=== PATIENT | female | born 1940 | race Caucasian/White ===

== ENCOUNTER 2022-06-30 13:46 | Outpatient (CLI) | payer MEDICARE, SELFPAY ==
--- NOTE | 2022-06-30 | CT_ITS ---
WS: [id number] CT CHEST TECHNIQUE: Contrast enhanced CT of the chest with coronal and sagittal reformatted images. CLINICAL INFORMATION: ABN FINDING IN LUNG COMPARISON: CT chest 2013 DLP: 358.[address] scans at [facility] use at least one of these dose optimization techniques: automated e xposure control; mA and/or kV adjustment per patient size (includes targeted exams where dose is matc hed to clinical indication); or iterative reconstruction. FINDINGS: Advanced chronic emphysematous changes. No acute pulmonary infiltrates. No focal pneumonia or pleural fluid. Spiculated lesion in the RIGHT upper lobe near the lung apex measuring 1.4 cm in maximum dime nsion. This is new since 2013 and is indeterminant. Neoplasm not excluded. This can be further evalua nguyen with PET/CT. Normal thyroid gland. Aortic calcification. Normal caliber thoracic aorta. Coronary calcification. No rmal GE junction. Adrenal glands are normal. Thoracic scoliosis and kyphosis. Hypertrophic changes th oracic spine. CT/CT chest w con* [id number] IMPRESSION: 1. Spiculated 1.4 cm lesion RIGHT upper lobe at the lung apex. This is indeter minant and could be further evaluated PET/CT. 2. No other suspicious pulmonary parenchymal abnormalities. 3. Advanced chronic emphysematous changes. 4. No mediastinal or hilar lymphadenopathy. 5. Thoracic scoliosis and kyphosis.
[2022-06-30] MEDS: iohexol 350 mg/mL 500 mL Btl (per mL) IV (14:43)
[2022-06-30 15:28] LABS: Blood Urea Nitrogen 12 mg/dL (8-23)
== END 2022-06-30 13:47 | disposition home or self-care (01) ==
LOC: RAD 13:53
PROVIDERS: Visit Provider Nurse Practitioner Family
DX: R91.8 Other nonspecific abnormal finding of lung field (principal); J98.4 Other disorders of lung; M41.84 Other forms of scoliosis, thoracic region
CPT/HCPCS: 71260; 82565; 84520; Q9967

== ENCOUNTER 2022-08-06 05:59 | Outpatient (CLI) | payer MEDICARE, SELFPAY ==
--- NOTE | 2022-08-06 | PETR_ITS ---
PROCEDURE INFORMATION: Exam: PET/CT Skull Base to Mid-thigh Exam date and time: 08/06/2022 9:30 AM Age: 82 years old Clinical indication: Abnormal findings; Spiculated 1.4 cm lesion right upper lobe at the lung apex. This is indeterminant and could be. Further evaluated pet/ct. ; Additional info: Lung mass noted on CT LABS AND CLINICAL REPORTS: Glucose: 106 mg/dl Treatment strategy for malignancy (PET staging): Initial Staging (PI) TECHNIQUE: Imaging protocol: Following at least four-hour fasting and following the injection of F-18-FDG, low dose CT images were obtained. Then, PET images were obtained. Attenuation corrected images were constructed using the CT scan. Fused images of PET and CT were reviewed. The standardized uptake values (SUV) reported below are maximum values within a region of interest, expressed in gm/ml. Exam includes orbital meatal line to mid-thigh. Radiopharmaceutical: 12.61 mCi F-18 FDG (Fluorodeoxyglucose), IV. Time of imaging post radiopharmaceutical administration: 1 hour Injection site: Right antecubital vein COMPARISON: CT chest 06/30/2022 and 05/24/2014 FINDINGS: Brain: Visualized brain has normal physiologic uptake. Pharynx: No abnormal uptake. Larynx: No abnormal uptake. Lungs, pleura and trachea: 2 x 0.6 cm spiculated opacity medially in the right upper lobe in the apex with spiculations extending toward the mediastinal pleura measures 2.1 SUV. No additional lung nodules or masses. Severe centrilobular emphysema in the upper lobes. No pleural effusion. Heart: Normal physiologic uptake. There is no cardiomegaly. Severe coronary artery calcification is present. There is no pericardial effusion. Mediastinal space: No abnormal uptake. Liver: No abnormal uptake. Gallbladder and bile ducts: No abnormal uptake. No calcified gallstones. Pancreas: No abnormal uptake. Spleen: No abnormal uptake. No splenomegaly. Adrenal glands: No abnormal uptake. Kidneys and ureters: Normal physiologic uptake. No hydronephrosis. Stomach and bowel: Diffusely increased uptake in the entire length of the colon and in a few loops of distal ileum with no corresponding CT abnormality is benign. No abnormal dilatation of the bowel. Air is diverticulosis of the left and right colon most extensive in the sigmoid colon. Intraperitoneal and retroperitoneal spaces: No abnormal uptake. No ascites. Bladder: Normal physiologic uptake. Reproductive: No abnormal uptake. There are bilateral Bartholin's gland cysts measuring 2.1 x 1.7 cm on the right side and 1.4 x 1.2 cm on the left side. Vasculature: No abnormal uptake. Lymph nodes: No abnormal uptake. No lymphadenopathy in the head, neck, chest, abdomen, pelvis, and extremities. Bones/joints: Bilateral symmetric increased synovial uptake in the shoulders joints and the increased uptake within bilateral acromioclavicular joints is compatible with benign finding. Degenerative changes in the lumbar spine with mild scoliosis convex to the right centered at L2 level. Soft tissues: No abnormal uptake in the visualized head, neck, chest, abdomen, pelvis, and extremities. PET/PET skulltothigh INITIAL [id number] IMPRESSION: Right upper lobe elongated spiculated opacity new since 2013 measures 2.1 SUV. Malignancy cannot be excluded. No FDG avid lymphadenopathy or evidence of distant metastatic disease. Benign CT findings (severe emphysema and the upper lobes, severe coronary artery calcifications, diverticulosis of the colon, degenerative changes in the shoulders and in the lumbar spine, bilateral Bartholin's gland cysts).
== END 2022-08-06 06:00 | disposition home or self-care (01) ==
LOC: RAD 08-08 06:00
PROVIDERS: Visit Provider Nurse Practitioner Family
DX: R91.8 Other nonspecific abnormal finding of lung field (principal)
CPT/HCPCS: 78815; A9552